=== PATIENT | female | born 1955 | race Caucasian/White ===

== ENCOUNTER 2017-10-31 11:16 | Emergency (ER) | END 2017-10-31 17:50 | disposition home or self-care (01) ==

== ENCOUNTER 2018-08-19 15:32 | Emergency (ER) | END 2018-08-19 17:27 | disposition home or self-care (01) ==

== ENCOUNTER 2018-11-24 12:43 | Emergency (ER) | payer OTHER ==
[~2018-11-24] VITALS: Ht 152.4 cm; Wt 88.0 kg
[~2018-11-24 12:43] MED LIST: ACET500C5 PO; AZIT250T13 PO; BENZ1LOZ28 MM; CETI10CA PO; FEXO180T61 PO; GUAI-637 PO; IBUP-1542 PO; MED4DP PO; VITAMIN C
[2018-11-24 12:45] VITALS: BP 158/73; PULSE 66; RESP 16; Ht 152.4 cm; Wt 88.0 kg
[2018-11-24] MEDS ORDERED: ACETAMINOPHEN 325 MG TAB PO ONE (13:30)
[2018-11-24] MEDS ORDERED: LIDOCAINE 1% (MDV) 20 ML INJ SC ONE (13:30)
[2018-11-24] MEDS ORDERED: NEOM28OI2 TP (13:30)
[2018-11-24] MEDS ORDERED: ACET500C5 PO (13:30)
--- NOTE | 2018-11-24 13:33 | ERD ---
ER Documentation Chief Complaint Chief Complaint pt bib self with c/o right pinky toe pain for a few a wks HPI 63-year-old female presents with right fifth toe pain for last 3 weeks. She d enies any history of trauma. She has an abnormal nail on that toe. Pain may have started after trying to give herself a pedicure. Scribes pain is 8 out of 10, without radiation, throbbing, and sharp. ROS All systems reviewed and are negative except as per history of present illness. Medications Home Meds Active Scripts Neomycin Johnson/Bacitrac Zn/Poly (Triple Antibiotic Ointment) 28 Gm Oint...g., 28 GM TP TID for 7 Days Prov:FEDERICO LEBLANC MD 11/24/18 Acetaminophen* (Tylophen*) 500 Mg Capsule, 1 CAP PO Q6H PRN for PAIN AND OR ELEVATED TEMP, #20 CAP Prov:FEDERICO LEBLANC MD 11/24/18 Guaifenesin* (Robitussin*) 100 Mg/5 Ml Syrup, 200 MG PO Q6H PRN for COUGH for 3 Days, ML Prov:KOURTNEY RICHTER 10/31/17 Methylprednisolone* (Medrol* DOSE PACK) 4 Mg/Dose-Pack Tab.ds.pk, 4 MG PO . DIRECTED for 6 Days, PACKET Prov:KOURTNEY RICHTER 10/31/17 Fexofenadine Hcl* (Jennifer*) 180 Mg Tablet, 180 MG PO DAILY, #30 TAB Prov:KOURTNEY RICHTER 10/31/17 Ibuprofen* (Motrin*) 600 Mg Tab, 600 MG PO Q6, #30 TAB Prov:MARK ANTHONY PAZ PA-C 02/21/16 Azithromycin* (Azithromycin*) 250 Mg Tablet, 500 MG PO ONCE, #1 TAB Prov:JANNA LEDEZMA [employer] 11/30/15 Azithromycin* (Azithromycin*) 250 Mg Tablet, 250 MG PO DAILY, #4 TAB Prov:JANNA LEDEZMA [employer] 11/30/15 Acetaminophen* (Tylophen*) 500 Mg Capsule, 1000 MG PO Q6H PRN for FEVER for 10 Days, TAB Prov:JANNA LEDEZMA [employer] 11/30/15 Benzocaine/Menthol ([facility] SORE THROAT LOZENGE) 1 Each Lozenge, 1 EACH MM Q2H for 10 Days, LOZENGE Prov:JANNA LEDEZMA [employer] 11/30/15 Cetirizine Hcl* (Zyrtec*) 10 Mg Capsule, 10 MG PO DAILY, #10 TAB.CHEW Prov:JANNA LEDEZMA [employer] 11/30/15 Reported Medications [Vitamin C] No Conflict Check 10/13/09 Allergies Allergies: Coded Allergies: No Known Drug Allergy (Verified Allergy, Mild, 09/24/14) PMhx/Soc History of Surgery: Yes (HYSTERECTOMY, MASTECTOMY, THYROIDECTOMY) Anesthesia Reaction: No Hx Neurological Disorder: No Hx Respiratory Disorders: No Hx Cardiac Disorders: Yes (HTN) Hx Psychiatric Problems: No Hx Miscellaneous Medical Probl: Yes (HYPERLIPIDEMIA) Hx Alcohol Use: No Hx Substance Use: No Hx Tobacco Use: No Smoking Status: Never smoker FmHx Family History: No diabetes, No coronary disease, No other Physical Exam Vitals Vital Signs Date Temp Pulse Resp B/P (MAP) Pulse Ox O2 O2 Flow FiO2 Time Delivery Rate 11/24/18 98.3 66 16 158/73 99 12:45 (101) Physical Exam Const: No acute distress Head: Atraumatic Eyes: Normal Conjunctiva ENT: Normal External Ears, Nose and Mouth. Neck: Full range of motion. No meningismus. Resp: Clear to auscultation bilaterally Cardio: Regular rate and rhythm, no murmurs Abd: Soft, non tender, non distended. Normal bowel sounds Skin: No petechiae or rashes Back: No midline or flank tenderness Ext: No cyanosis, or edema. Right fifth toe with mycotic nail thickened. No erythema, significant swelling, discharge or bleeding. She is tender in the lateral aspect of the nail. Neur: Awake and alert Psych: Normal Mood and Affect Results 24 hrs Current Medications Medications Dose Sig/Marlin Start Time Status Last (Trade) Ordered Route PRN Stop Time Admin Dose Reason Admin 650 mg ONCE ONCE 11/24/18 DC 11/24/18 Acetaminophen PO 13:30 11/24/18 13:16 (Tylenol 13:31 Tab) Lidocaine 20 ml ONCE ONCE 11/24/18 DC (Xylocaine SC 13:30 11/24/18 1% (Mdv) 20 13:31 ml) Procedures/MDM X-ray right fifth toe 2V Interpreted by me: Bones: Question nondisplaced base of the fifth digit phalanges Joints: No dislocation Foreign Body: None. Impression- no significant acute findings on right fifth toe x-ray. Questionable nondisplaced fracture at the base of the digit although does not correlate with patient's history or symptoms. No evidence of osteomyelitis. She elected for nail avulsion as ingrown nail likely cause of pain. Procedure note-right fifth toe was prepped with Betadine. 2 cc lidocaine was used to perform digital block. Using forceps and scissors the mycotic nail was removed in its entirety. Patient tolerated procedure well and the wound was dressed. He will be discharged home with return precautions worsening redness, fevers, discharge, new worsening symptoms otherwise with primary doctor for wound check. We will Otherwise treat with Tylenol and triple antibiotic cream. The patient was stable with no new complaints during the ER course. Clinically, there is no current evidence to suggest meningitis, sepsis, acute abdomen, pneumonia, stroke, acute coronary syndrome, pulmonary embolism, aortic dissection or any other emergent condition appearing to require further evaluation or hospitalization. Patient counseled regarding my diagnostic impression and care plan. Prior to discharge all questions answered. Pt agrees with treatment plan and understands strict return precautions. Pt is instructed to follow up with primary care provider within 24-48 hours. Precautionary instructions provided including instructions to return to the ER if not improving or for any worsening or changing symptoms or concerns. Departure Diagnosis: Primary Impression: Ingrown toenail of right foot Condition: Stable Patient Instructions: Ingrown Toenail, Excised Additional Instructions: x ray normal hoy. Cheque otro vez con johnson doctor primario en el proximo mckeon or regresa para mas o nueva simptomas- dimitrios oglesby, pus, . FEDERICO LEBLANC MD Nov 24, 2018 13:33
== END 2018-11-24 15:27 | disposition home or self-care (01) ==
LOC: FTE 12:43
DX: L60.0 Ingrowing nail (principal); I10 Essential (primary) hypertension
CPT/HCPCS: 11750; 73660; Z7502; Z7610